=== PATIENT | female | born 1965 | race Caucasian/White ===

== ENCOUNTER 2017-05-31 23:10 | Emergency (ER) | payer BC ==
--- NOTE | 2017-06-01 01:46 | RAD ---
EXAM: Two view chest. INDICATION: Cough. COMPARISON: Chest x-ray: None. FINDINGS: Cardiac silhouette: Unremarkable. Lianet: Unremarkable. Lobar consolidation: None. Pleural effusion: None. Pneumothorax: None. Other: None. Bones: Unremarkable. Other: None. IMPRESSION: 1. No acute cardiopulmonary process. Electronically signed by: Jitendra Wynne MD 06/01/2017 1:45 AM [facility] Workstation: [id number]
[2017-06-01] MEDS: fentaNYL CITRATE INJ 50 MCG/ML AMP IM ONE (02:35)
--- NOTE | 2017-06-01 02:35 | ED.PDOC ---
History of Present Illness - General Chief Complaint: Fever Stated Complaint: fever, bodyaches, nausea Time Seen by Provider: 06/01/17 00:05 Source: patient Exam Limitations: no limitations Additional Information: C/O FEVER AND KONG. 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 Denies: throat pain Respiratory: States: cough. Denies: short of breath, wheezing Cardiology: States: syncope. Denies: chest pain Gastrointestinal/Abdominal: States: nausea. Denies: abdominal pain, vomiting Genitourinary: States: no symptoms reported Musculoskeletal: States: muscle pain Skin: States: no symptoms reported Neurological: States: headache. Denies: numbness, weakness Endocrine: States: no symptoms reported Hematologic/Lymphatic: States: no symptoms reported Past Medical History (General) - Patient Medical History Hx Seizures: No Hx Asthma: Yes Hx Congestive Heart Failure: No Hx Hypertension: No Hx Diabetes: No Hx Gastroesophageal Reflux: No Hx Renal Disease: No Surgical History: appendectomy - Vaccination History Hx Tetanus, Diphtheria Vaccination: No Hx Influenza Vaccination: No Hx Pneumococcal Vaccination: No - Social History Hx Tobacco Use: Yes Hx Alcohol Use: Yes - occ Family Medical History - Family History Mother Family History: Unknown Physical Exam - Physical Exam General Appearance: Alert, No apparent distress, Other - APPEARS NOT TO FEEL WELL Eye Exam: bilateral normal ENT Exam: normal ENT inspection, hearing grossly normal, TMs normal, pharynx normal Neck: non-tender, full range of motion, supple, normal inspection Respiratory: lungs clear, normal breath sounds Cardiovascular/Chest: regular rate, rhythm, no murmur Gastrointestinal/Abdominal: non tender, soft, no organomegaly Extremity: normal range of motion, normal inspection Neurologic: no motor/sensory deficits, alert, normal mood/affect Skin Exam: normal color, warm/dry Lymphatic: no adenopathy Progress - Progress Progress: 06/01/17 02:37 C/O KONG AND NAUSEA, VSS. SATS NL. - EKG/XRAY/CT XRAY: chest - TAL Departure - Departure Clinical Impression: Viral syndrome Time of Disposition: 02:38 Disposition: Discharge to Home or Self Care Condition: Good Departure Forms: ED Discharge - Pt. Copy, Patient Portal Self Enrollment Instructions: DI for Fever (Symptom) -- Adult Prescriptions: Tramadol HCl [Ultram] 50 mg PO Q6HR PRN #15 tab PRN Reason: Pain Oseltamivir Phosphate [Tamiflu] 75 mg PO BID #10 cap Home Medications: Ambulatory Orders Oseltamivir Phosphate [Tamiflu] 75 mg PO BID #10 cap 06/01/17 Tramadol HCl [Ultram] 50 mg PO Q6HR PRN #15 tab 06/01/17
[2017-06-01] MEDS: PROMETHAZINE HCL INJ 25 MG/ML VIAL IM ONE (02:36)
[2017-06-01 02:50] VITALS: BP 167/90; O2SAT 96
[2017-06-01 03:04] VITALS: TEMP 99.4
== END 2017-06-01 03:04 | disposition home or self-care (01) ==
LOC: ER 23:10
DX: B34.9 Viral infection, unspecified (principal)
CPT/HCPCS: 71020; 87502; J2550; J3010